=== PATIENT | male | born 1995 | race Hispanic/Latino ===

== ENCOUNTER 2024-06-02 15:59 | Emergency (ER) | payer SELFPAY ==
[2024-06-02 16:24] VITALS: BP 143/92
--- NOTE | 2024-06-02 16:27 | ED.GENMED ---
ED Provider Triage
<Deandra Pond PA-C - Last Filed: 06/02/24 16:31>
-
Patient seen by provider in Triage?: Seen in Triage
Attestation: A medical screening examination has been initiated by a qualified medical provider. Based on the assessment performed at this time, it has been determined that an emergent medical condition may exist and the patient has been informed
that further medical evaluation and possible additional diagnostic testing may be needed.
HPI: 28yoM here with central chest pain x several weeks. Worse over the past 2 hours. Also c/o SOB. No pain with running/exercise.
GENERAL: Alert , in no apparent distress
EYE: No visual abnormalities.
NECK: Trachea midline
ENT: No visible abnormalities.
LUNGS: No acute respiratory distress
NEUROLOGICAL: Alert and oriented
SKIN: Skin intact. No visible changes.
MUSCULOSKELETAL: Moving extremities normally
PSYCH: Normal and appropriate interaction.
This is a medical evaluation conducted in person to initiate diagnostic evaluation and provide initial therapeutics. Please see further documentation by the treating clinician.
Cardiac labs, EKG, and CXR ordered.
History of Present Illness
<Deandra Pond PA-C - Last Filed: 06/02/24 16:31>
General
Chief Complaint: Chest Pain
Time Seen by Provider: 06/02/24 18:27
<Honorio Fry DO - Last Filed: 06/02/24 19:12>
General
Source: patient
History of Present Illness
History of Present Illness:
28-year-old male presents emergency room complaining of chest pain. Patient experiences episodes of chest pain, shortness of breath, dizziness and feeling stress intermittently. They been worse over the past couple weeks. Currently he is
symptom-free. 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 He does not take any xwit-osu-dsjwoyz medications nor any prescription medications. He denies drug or alcohol use.
Phy Exam
<Honorio Fry DO - Last Filed: 06/02/24 19:12>
Physical Exam
Physical Exam:
General: Awake, Alert, Oriented X3. No acute distress.
Vitals: unremarkable
Head: Atraumatic
Eyes: Pupils equal, EOMI
Throat: Airway intact, no exudates
Neck: Trachea midline
Lungs: Clear and equal b/l
Heart: Regular rate, no murmurs
Abd: Soft, Nontender, No pulsatile mass
Neuro: Nonfocal
Skin: Warm, dry, no rash
Extremities: pulses equal b/l, no edema
Scores
<Honorio Fry DO - Last Filed: 06/02/24 19:12>
Heart Score for Chest Pain Patients
STEMI patient?: No
History: Slightly or Non-Suspicious
ECG: Normal
Age: </= 45 years
Risk Factors: No Risk Factors
Troponin: </= Normal Limit
Heart Score for Chest Pain Patients: 0
Heart Score Risk: 2.5% MACE over next 6 weeks
Course
<Deandra Pond PA-C - Last Filed: 06/02/24 16:31>
Orders/Labs/Results
Orders:
Orders
06/02/24
CR Chest - 2 Views Urgent
Comment:
Reason For Exam: CP
06/02/24 16:00
EKG [Electrocardiogram (*1)] Urgent
Reason for Study: Chest Pain
EKG- Treatment ONCE
06/02/24 16:49
Complete Blood Count/With Diff Urgent
Comprehensive Metabolic Panel Urgent
Troponin I Urgent
Abnormal Lab Results
06/02/24
16:49
Abs Immat Gran (auto) 0.1 H 10^3/uL
(0-0.05)
Absolute Monos (auto) 0.7 H 10^3/uL
(0.1-0.6)
Immature Gran % 0.8 H %
(0-0.5)
Albumin 5.3 H g/dl
(3.5-5.0)
06/02/24 16:49
06/02/24 16:49
Vital Signs
Initial and Last Documented VS:
Initial Vital Signs
Temp Pulse Resp BP Pulse Ox
99.1 F 76 20 143/92 98
06/02/24 16:24 06/02/24 16:24 06/02/24 16:24 06/02/24 16:24 06/02/24 16:24
Last Documented Vital Signs
Temp Pulse Resp BP Pulse Ox
99.1 F 75 18 146/90 99
06/02/24 16:24 06/02/24 18:17 06/02/24 18:17 06/02/24 18:17 06/02/24 18:17
<Honorio HRoel Fry, DO - Last Filed: 06/02/24 19:12>
Orders/Labs/Results
Orders:
Orders
06/02/24
CR Chest - 2 Views Urgent
Comment:
Reason For Exam: CP
06/02/24 16:00
EKG [Electrocardiogram (*1)] Urgent
Reason for Study: Chest Pain
EKG- Treatment ONCE
06/02/24 16:49
Complete Blood Count/With Diff Urgent
Comprehensive Metabolic Panel Urgent
Troponin I Urgent
Abnormal Lab Results
06/02/24
16:49
Abs Immat Gran (auto) 0.1 H 10^3/uL
(0-0.05)
Absolute Monos (auto) 0.7 H 10^3/uL
(0.1-0.6)
Immature Gran % 0.8 H %
(0-0.5)
Albumin 5.3 H g/dl
(3.5-5.0)
06/02/24 16:49
06/02/24 16:49
Vital Signs
Initial and Last Documented VS:
Initial Vital Signs
Temp Pulse Resp BP Pulse Ox
99.1 F 76 20 143/92 98
06/02/24 16:24 06/02/24 16:24 06/02/24 16:24 06/02/24 16:24 06/02/24 16:24
Last Documented Vital Signs
Temp Pulse Resp BP Pulse Ox
99.1 F 75 18 146/90 99
06/02/24 16:24 06/02/24 18:17 06/02/24 18:17 06/02/24 18:17 06/02/24 18:17
<Honorio Fry, DO - Last Filed: 06/02/24 19:12>
MDM/Problems Addressed
Differential Diagnosis Includes:
Musculoskeletal chest pain, angina, pneumothorax, anxiety
MDM/Problems Addressed:
Labs, chest x-ray and EKG here are all unremarkable. Overall presentation seems more consistent with anxiety. Patient does not have a primary care provider nor does he have insurance. He is given the contact information for [facility] to follow-up as an outpatient.
<Honorio Fry, DO - Last Filed: 06/02/24 19:12>
*Pulse Oximetry
Patient hypoxic: no
*EKG
Interpreted by ED Provider?: Yes
Heart Rate: 86
Rate: normal
Rhythm: sinus
[place]: normal axis
Interval: normal interval
QRS Pattern: normal QRS
Ischemia: no ischemia
*Straw Hat Presser Interpretation
Rate: normal
Interpretation: normal
Heart Rate: 86
Rhythm: sinus
*Critical Care Note
Total Time (30-74mins, 75-104mins- exclusive of procedures): Not Applicable
ED Attending Note
<Deandra Pond PA-C - Last Filed: 06/02/24 16:31>
-
Portions of this chart may have been created with voice recognition software.� Occasional wrong word or��sound alike� substitutions may have occurred due to the inherent limitations of voice recognition software.
Discharge Plan
Departure
Patient Disposition: Home (Routine Discharge)
Date of Disposition: 06/02/24
Time of Disposition: 18:54
Patient with high blood pressure during this ER visit?: No
Condition: Good
Discharge Problem:
Chest pain, Anxiety
Instructions: Panic Attack ED, Chest Pain PCP Follow Up
Referrals:
[facility] [Provider Group]
[facility] [Outside]
NONE,* [Family Provider] -
Interventions
Interventions:
*Risk Screen - Suicide Last Done: 06/02/24 16:24
*General Assessment Last Done: 06/02/24 16:24
*Neglect/Abuse Screening Last Done: 06/02/24 16:24
*ED COVID-19 Vaccine History Last Done: 06/02/24 16:24
ED- Cardiac Assessment Last Done: 06/02/24 18:04
Discharge Date and Time
Print Language: LEBANESE
[2024-06-02 17:08] LABS: % Basophils 0.4 % (0-2); % Eosinophils 0.9 % (0-6); % Immature Granulocytes 0.8 % (0-0.5); % Lymphocytes 23.4 % (20.5-51.1); % Monocytes 7.1 % (1.7-9.3); % Neutrophils 67.4 % (42.2-75.2); Absolute Eosinophils 0.1 10^3/uL (0-0.7); Absolute Immature Granulocytes 0.1 10^3/uL (0-0.05); Absolute Lymphocytes 2.2 10^3/uL (1.2-3.4); Absolute Monocytes 0.7 10^3/uL (0.1-0.6); Absolute Neutrophils 6.3 10^3/uL (1.4-6.5); Hematocrit 45.4 % (39.0-52.0); Mean Corp Hgb Conc. 35.2 g/dL (33.0-37.0); Mean Corpuscular Hgb 29.5 pg (27.0-31.0); Mean Corpuscular Volume 83.6 fL (80.0-94.0); Mean Platelet Volume 9.2 fL (7.4-10.4); Nucleated Red Blood Cells % 0 % (-); Platelet Count 291 10^3/uL (130-400); Red Blood Cell Count 5.43 10^6/uL (4.70-6.10); Red Cell Dist. Width 12.2 % (11.5-14.5); White Blood Cell Count 9.3 10^3/uL (4.8-10.8)
[2024-06-02 17:14] LABS: ALT (SGPT) 20 U/L (0-50); AST (SGOT) 26 U/L (17-59); Albumin 5.3 g/dl (3.5-5.0); Alkaline Phosphatase 109 U/L (38-126); Blood Urea Nitrogen 17 mg/dl (9-20); Calcium 9.8 mg/dl (8.4-10.2); Carbon Dioxide 26 mmol/L (22-30); Chloride 102 mmol/L (98-107); Glucose 97 mg/dl (70-99); Potassium 4.8 mmol/L (3.5-5.1); Sodium 138 mmol/L (135-145); Total Bilirubin 0.4 mg/dl (0.2-1.3); Total Protein 8.2 g/dl (6.3-8.2); eGFR > 60.00
[2024-06-02 17:25] LABS: Troponin I < 0.012 ng/ml
[2024-06-02 18:17] VITALS: BP 146/90
[2024-06-02 19:04] VITALS: BP 130/89
== END 2024-06-02 19:07 | disposition home or self-care (01) ==
LOC: EMR 15:59
PROVIDERS: Physician Assistant; EMERGENCY PHYSICIAN Emergency Medicine
DX: R07.89 Other chest pain (principal); F41.9 Anxiety disorder, unspecified
CPT/HCPCS: 99285; 71046; 80053; 84484; 85025; 93005

== ENCOUNTER 2025-05-16 22:12 | Emergency (ER) | payer SELFPAY ==
[2025-05-16 22:21] VITALS: BP 148/92
[2025-05-16 22:47] LABS: Urine Character Clear (Clear)
[2025-05-16 22:48] LABS: Hematocrit 44.1 % (39.0-52.0); Hemoglobin 15.1 g/dL (13.0-18.0); Mean Corp Hgb Conc. 34.2 g/dL (33.0-37.0); Mean Corpuscular Volume 87.2 fL (80.0-94.0); Nucleated Red Blood Cells % 0 % (-); Platelet Count 297 10^3/uL (130-400); Red Cell Dist. Width 12.1 % (11.5-14.5)
[2025-05-16 23:13] LABS: ALT (SGPT) 17 U/L (0-50); AST (SGOT) 21 U/L (17-59); Albumin 4.8 g/dl (3.5-5.0); Alkaline Phosphatase 110 U/L (38-126); Blood Urea Nitrogen 15 mg/dl (9-20); Calcium 9.3 mg/dl (8.4-10.2); Carbon Dioxide 28 mmol/L (22-30); Chloride 103 mmol/L (98-107); Glucose 113 mg/dl (70-99); Lipase 115 U/L (23-300); Potassium 4.0 mmol/L (3.5-5.1); Sodium 136 mmol/L (135-145); Total Protein 7.7 g/dl (6.3-8.2); eGFR > 60.00
--- NOTE | 2025-05-16 23:38 | ED.GENMED ---
History of Present Illness
<Vivi Guerra PA-C - Last Filed: 05/17/25 08:14>
General
Chief Complaint: Urinary Symptoms
Source: patient
Exam Limitations: none
Time Seen by Provider: 05/16/25 23:34
Nursing documentation reviewed up to this point in time: agreed with
History of Present Illness
History of Present Illness:
29-year-old male with no past medical history presents to ER today with concerns of penile pain and abdominal pain. He reports that this started 2 months ago and reports that the onset of pain was associated with dysuria. [place] antibiotic that he is not recall. He reports that the symptoms improved but he feels like the symptoms of a urinary tract infection are returning. What concerned him today is that the past month he started
to develop abdominal pain under his bellybutton to the left side. He also reports that at times, he gets some rectal pressure. He also at times has left flank pain but not at this current moment. Denies any loss of sensation in the genital region
or genital paresthesias. He reports that the pain at the tip of his penis comes and goes and seems to be improving but abdominal pain is new. He denies any penile discharge. Denies any testicular pain. He reports that he has a female sexual
partner and is concerned about possible STD exposure. He is not sure if she tested positive for any specific infection. He does admit he has a history anxiety and has had ongoing concerns about the symptoms. He does not have a family doctor. He
denies any past history of intra-abdominal surgeries. He has been eating and drinking okay. He denies any diarrhea or constipation. Patient denies urinary retention.
Review of Systems
<Vivi Guerra PA-C - Last Filed: 05/17/25 08:14>
Review of Systems
All Other Systems: ROS reviewed and negative except as documented in HPI and ROS
Phy Exam
<Vivi Guerra PA-C - Last Filed: 05/17/25 08:14>
Physical Exam
Physical Exam:
General: Patient is well appearing and in no acute distress; non-toxic
Skin: Warm and dry, no rashes or lesions
Head: Normocephalic, atraumatic
Eyes: Sclera non-icteric. EOMs intact.
Cardiac: Regular rate and rhythm, no murmurs
Peripheral Vascular: No lower extremity swelling or edema
Pulm: Normal respiratory effort, no wheezes, rales, or rhonchi
Abdomen: Left lower quadrant abdominal tenderness to palpation
Genitourinary: Uncircumcised male, no penile discharge, foreskin retracts normally, no erythema, no testicular tenderness, no palpable testicular mass, normal testicular lie
Neuro: CN II-XII intact, no focal neurologic deficits.
Psychiatric: Appropriate mood and affect.
Course
<Vivi Guerra PA-C - Last Filed: 05/17/25 08:14>
Orders/Labs/Results
Orders:
Orders
05/16/25 22:29
Complete Blood Count/With Diff Urgent
Comprehensive Metabolic Panel Urgent
Lipase Urgent
Urinalysis Reflex To Culture Urgent
Date Specimen was Collected: 05/16/25
Time Specimen was Collected: 22:26
Chlamydia/GC by PCR Urgent
RAKESH Source: U
Specimen Description:
Source:: URINE
Date Specimen was Collected: 05/16/25
Time Specimen was Collected: 22:26
05/16/25 23:37
Add On - Microbiology Urgent
Tests Added?: GC/chlamydia urine
05/17/25 00:06
CT Abd/pelvis W Iv Cont Urgent
Comment:
Reason For Exam: LLQ ab pain, rectal pain
05/17/25 00:21
HIV Combo Urgent
Hepatitis A Antibody, Total Urgent
Hepatitis A IgM Antibody Urgent
Hepatitis B Core Ab, IgM Urgent
Hepatitis B Core Ab, Total Urgent
Hepatitis B Surface Antibody Urgent
Hepatitis B Surface Antigen Urgent
Hepatitis C Antibody Urgent
Syphilis/T. pallidum Ab Reflex Urgent
Abnormal Lab Results
05/16/25
22:29
Glucose 113 H mg/dl
(70-99)
05/16/25 22:29
05/16/25 22:29
Vital Signs
Initial and Last Documented VS:
Initial Vital Signs
Temp Pulse Resp BP Pulse Ox
36.8 C 69 17 148/92 99
05/16/25 22:21 05/16/25 22:21 05/16/25 22:21 05/16/25 22:21 05/16/25 22:21
Last Documented Vital Signs
Temp Pulse Resp BP Pulse Ox
36.6 C 74 16 152/83 98
05/17/25 00:27 05/17/25 02:47 05/17/25 02:47 05/17/25 02:47 05/17/25 02:47
<Andie Patton PA-C - Last Filed: 05/17/25 11:06>
Orders/Labs/Results
Orders:
Orders
05/16/25 22:29
Complete Blood Count/With Diff Urgent
Comprehensive Metabolic Panel Urgent
Lipase Urgent
Urinalysis Reflex To Culture Urgent
Date Specimen was Collected: 05/16/25
Time Specimen was Collected: 22:26
Chlamydia/GC by PCR Urgent
RAKESH Source: U
Specimen Description:
Source:: URINE
Date Specimen was Collected: 05/16/25
Time Specimen was Collected: 22:26
05/16/25 23:37
Add On - Microbiology Urgent
Tests Added?: GC/chlamydia urine
05/17/25 00:06
CT Abd/pelvis W Iv Cont Urgent
Comment:
Reason For Exam: LLQ ab pain, rectal pain
05/17/25 00:21
HIV Combo Urgent
Hepatitis A Antibody, Total Urgent
Hepatitis A IgM Antibody Urgent
Hepatitis B Core Ab, IgM Urgent
Hepatitis B Core Ab, Total Urgent
Hepatitis B Surface Antibody Urgent
Hepatitis B Surface Antigen Urgent
Hepatitis C Antibody Urgent
Syphilis/T. pallidum Ab Reflex Urgent
Abnormal Lab Results
05/16/25
22:29
Glucose 113 H mg/dl
(70-99)
05/16/25 22:29
05/16/25 22:29
Vital Signs
Initial and Last Documented VS:
Initial Vital Signs
Temp Pulse Resp BP Pulse Ox
36.8 C 69 17 148/92 99
05/16/25 22:21 05/16/25 22:21 05/16/25 22:21 05/16/25 22:21 05/16/25 22:21
Last Documented Vital Signs
Temp Pulse Resp BP Pulse Ox
36.6 C 74 16 152/83 98
05/17/25 00:27 05/17/25 02:47 05/17/25 02:47 05/17/25 02:47 05/17/25 02:47
Gideonlt;Vivi Guerra PA-C - Last Filed: 05/17/25 08:14>
MDM/Problems Addressed
Differential Diagnosis Includes:
Differentials include balanitis, UTI, constipation, diverticulitis, phimosis/paraphimosis, etc. etc.
MDM/Problems Addressed:
29-year-old male presents to the ER today with concerns of multiple symptoms including penile pain, and abdominal pain. He reports that penile pain is intermittent and worse at night. Currently, he is pain-free and pain seemed to resolve shortly
after arrival to the ER. He has no burning with urination. No concerns of urinary retention. No penile discharge. He does have 1 female sexual partner but was concerned about possible STD exposure although partner has no confirmed STDs and no
associated symptoms. He reports that he had similar pain when he had [place] U[place] however the pain is less severe than it was at that time. He has no acute urinary retention contrary to triage note.
On physical exam, he has normal appearing genitalia no penile discharge. Urinalysis shows no signs concerning for infection. He did test positive for hepatitis A antibodies however we has not had any diarrhea or nausea or vomiting and no right
sided abdominal pain, his LFTs are normal. Explained that this could be from prior exposure. His hepatitis A IgM is negative. He went for CAT scan due to his abdominal pain is over the past few days which showed no evidence of intra-abdominal
infection, did show a large degree of constipation. We had long discussion regarding symptoms and ultimately, decision was made for patient to follow-up with the [facility], discussed the patient will need to follow-up with urology at some point
in the future. He reports that currently, he is free of abdominal pain and free of penile pain. Discussed tricked return precautions. Patient stable for
<Vivi Guerra PA-C - Last Filed: 05/17/25 08:14>
*Pulse Oximetry
SaO2: 99
Oxygen Mode of Delivery: Room air
Patient hypoxic: no
*Critical Care Note
Total Time (30-74mins, 75-104mins- exclusive of procedures): Not Applicable
<Andie Patton PA-C - Last Filed: 05/17/25 11:06>
Update Note
Update Note:
05/17/2025 0641 AM
Patient tested positive for hepatitis A antibody. He was here for penile symptoms and concern for STDs. He was not having hepatitis A symptoms. I spoke with the provider who believed that this was a previous/past infection. Otherwise hepatitis
panel was negative
ED Attending Note
<Vivi Guerra PA-C - Last Filed: 05/17/25 08:14>
-
Portions of this chart may have been created with voice recognition software.� Occasional wrong word or��sound alike� substitutions may have occurred due to the inherent limitations of voice recognition software.
Discharge Plan
Departure
Patient Disposition: Home (Routine Discharge)
Date of Disposition: 05/17/25
Time of Disposition: 03:04
Patient with high blood pressure during this ER visit?: Yes
Discharge Problem:
Abdominal pain, Penile pain
Instructions: Abdominal Pain, BLOOD PRESSURE
Referrals:
[facility] [Outside] - Call in 1-3 days for appt
Bhupinder Zhu MD [Active, Urology] - Call in 1-3 days for appt
NONE,* [Family Provider, Internal Medicine]
Activity Restrictions/Additional Instructions:
As discussed, your CT scan shows a large volume of stool in the colon which may have explain your abdominal pain earlier. You tried taking MiraLAX. For the burning in your throat, you can try taking famotidine [id number]-odolhvd before dinner time.
In terms of your penile pain, your urinalysis is negative showing no signs of infection acutely. You will receive a call regarding your gonorrhea and chlamydia testing.
PLEASE RETURN EMERGENCY DEPARTMENT IF YOU DEVELOP INTRACTABLE NAUSEA OR VOMITING, FEVERS, PENILE DISCHARGE, TESTICULAR PAIN, OR ANY OTHER SIGNS OR SYMPTOMS WORRISOME TO YOU.

Radha ya se mencion�, garcia tomograf�a computarizada muestra urban gran cantidad de heces en el colon, lo que podr�a explicar garcia dolor abdominal anterior. Intent� jagruti MiraLAX. Para el ardor de garganta, puede intentar jagruti famotidina sin receta antes
de cenar. En cuanto al dolor de pene, gacria an�lisis de orina es negativo y no muestra signos de infecci�n aguda. Recibir� urban llamada con respecto a ayo pruebas de gonorrea y clamidia.
Por favor, acuda a urgencias si presenta n�useas o v�mitos intratables, fiebre, secreci�n peniana, dolor testicular o cualquier otro signo o s�ntoma preocupante.
Interventions
Interventions:
*Risk Screen - Suicide Last Done: 05/16/25 22:21
*General Assessment Last Done: 05/16/25 22:21
*Neglect/Abuse Screening Last Done: 05/16/25 22:21
*ED COVID-19 Vaccine History Last Done: 05/16/25 22:21
*ED Influenza Vaccine History Last Done: 05/16/25 22:21
[facility] Fall Risk Assessment Tool Last Done: 05/17/25 00:01
*Nursing Disposition Last Done: 05/17/25 03:07
ED-Male Genitourinary Assessment Last Done: 05/17/25 00:02
Discharge Date and Time
Discharge Date/Time: 05/17/25 03:10
Print Language: FAROESE
[2025-05-16 23:57] VITALS: BMI 26.9
[2025-05-17 00:27] VITALS: BP 137/86
[2025-05-17 01:30] LABS: Hepatitis B Surface Antigen Negative (Negative)
[2025-05-17 01:47] LABS: Hepatitis A Antibody, Total Positive (Negative); Hepatitis C Antibody Negative (Negative)
[2025-05-17 02:47] VITALS: BP 152/83
== END 2025-05-17 03:10 | disposition home or self-care (01) ==
LOC: EMR 22:12
PROVIDERS: Emergency Medicine; Physician Assistant; EMERGENCY PHYSICIAN Student in an Organized Health Care Education/Training Program
DX: R10.9 Unspecified abdominal pain (principal); N48.89 Other specified disorders of penis; B15.9 Hepatitis A without hepatic coma; Z87.440 Personal history of urinary (tract) infections
CPT/HCPCS: 99284; 74177; 80053; 81003; 83690; 85025; 86704; 86705; 86706; 86708; 86709; 86780; 86803; 87340; 87389; 87491; 87591; Q9967